=== PATIENT | male | born 1960 | race Two or more races ===

== ENCOUNTER 2021-03-18 22:56 | Emergency (ER) | payer MEDICAID, OTHER ==
[~2021-03-18] VITALS: Ht 170.2 cm; Wt 81.6 kg
[~2021-03-18 22:56] MED LIST: cloNIDine HCL 0.1 MG TAB ONE
[2021-03-18] MEDS ORDERED: cloNIDine HCL 0.1 MG TAB PO ONE (23:00)
[2021-03-18 23:45] VITALS: BP 202/112
== END 2021-03-19 00:51 | disposition home or self-care (01) ==
LOC: ER 22:56
DX: H57.89 Other specified disorders of eye and adnexa (principal); T65.891A Toxic effect of other specified substances, accidental (unintentional), initial encounter; Y92.89 Other specified places as the place of occurrence of the external cause

== ENCOUNTER → 2023-07-19 | Day surgery (SDC) | payer MEDICAID ==
[2023-07-16 13:18] LABS: Basophils # (auto) 0.1 10 ^3/uL (0-0.2); Basophils % (auto) 1.1 % (0.0-2.0); Eosinophils # (auto) 0.6 10 ^3/uL (0-0.8); Eosinophils % (auto) 7.2 % (0.0-7.0); Hematocrit 45.9 % (41.0-53.0); Hemoglobin 16.1 g/dL (13.5-17.5); Lymphocytes # (auto) 2.2 10 ^3/uL (0.4-5.4); Lymphocytes % (auto) 26.5 % (10.0-50.0); Mean Corpuscular Hemoglobin 31.1 pg (28.0-32.0); Mean Corpuscular Volume 88.9 fL (80.0-100.0); Monocytes # (auto) 0.7 10 ^3/uL (0-1.3); Monocytes % (auto) 7.9 % (0.0-12.0); Neutrophils # (auto) 4.7 10 ^3/uL (1.6-8.6); Neutrophils % (auto) 57.3 % (37.0-80.0); Nucleated Red Blood Cells % 0.1 %; Red Blood Cells 5.17 10^6/uL (4.5-5.90); Red Cell Distribution Width 13.6 % (11.8-14.3); White Blood Cell 8.3 10^3/uL (4.4-10.8)
[2023-07-16 13:47] LABS: INR 1.04 (0.9-1.15); Partial Thromboplastin Time 27.2 SEC (24.5-34.5); Prothrombin Time 10.9 sec (9.3-11.8)
[2023-07-16 14:07] LABS: Alanine Aminotransferase 59 U/L (7-40); Albumin 4.6 g/dL (3.2-4.8); Alkaline Phosphatase 91 U/L (46-116); Anion Gap 7 (5-15); Aspartate Aminotransferase 20 U/L (13-40); BUN/Creatinine Ratio 17.4 (10.0-20.0); Blood Urea Nitrogen 16 mg/dL (9-23); Calcium 10.6 mg/dL (8.5-10.1); Carbon Dioxide 29 mmol/L (20-30); Chloride 103 mmol/L (98-107); Glucose 138 mg/dL (74-106); Potassium 3.9 mmol/L (3.5-5.1); Sodium 139 mmol/L (136-145)
[2023-07-16 14:08] LABS: Bilirubin, Total 0.7 mg/dL (0.2-1.0); Total Protein 7.5 g/dL (5.7-8.2)
[2023-07-16 15:47] LABS: Urine Bacteria NONE SEEN /hpf (None Seen); Urine Blood Negative /uL (Negative); Urine Clarity Clear (Clear); Urine Color Yellow (Yellow); Urine Protein, UAD Negative (Negative); Urine Specific Gravity 1.021 (1.001-1.035); Urine Urobilinogen Normal (Negative); Urine WBC <1 /hpf (0 - 3); Urine pH 5.5 (5.0-8.0)
[~2023-07-19] VITALS: Ht 170.2 cm; Wt 80.7 kg
[~2023-07-19] MED LIST changes: +AMLO1TAB23 PO; +CIPROFLOXACIN 400MG/200ML 200 ML IV ONE; +CLON0.1T PO; +CYAN-17 PO; +DexAMETHasone SOD PHOS 10MG/1ML VIAL INJ ONE; +GLYCOPYRROLATE 0.2 MG/ML 1ML VIAL ONE; +IBUP-1456 PO; +KETOROLAC TROMETH 30 MG/ML 1ML VIAL ONE; +LIDOCAINE 2% (LOCAL ANESTH.) PF 5ml SDV ONE; +LISI-285 PO; +METF-370 PO; +METH-1181 PO; +ONDANSETRON HCL 4 MG/2 ML VIAL ONE; +PROPOFOL 10 MG/ML 20 ML IV ONE; -cloNIDine HCL 0.1 MG TAB ONE; +fentaNYL CITRATE 100 MCG/2 ML VL ONE
[2023-07-19 09:14] VITALS: TEMP 97.7
[2023-07-19 10:00] VITALS: BP 119/77; PULSE 64; RESP 10; O2SAT 96
== END | disposition home or self-care (01) ==
LOC: SUR 06:29
PROVIDERS: ATTEND Urology
DX: R97.20 Elevated prostate specific antigen [PSA] (principal); I10 Essential (primary) hypertension; E11.9 Type 2 diabetes mellitus without complications; Z79.899 Other long term (current) drug therapy; Z79.84 Long term (current) use of oral hypoglycemic drugs; J45.909 Unspecified asthma, uncomplicated; E66.3 Overweight; Z98.890 Other specified postprocedural states
CPT/HCPCS: 36415; 55700; 80053; 81001; 82962; 85025; 85610; 85730; 87086; J0744; J1100; J1885; J2001; J2405; J2704; J3010